=== PATIENT | male | born 1935 | race Caucasian/White ===

== ENCOUNTER 2018-12-15 10:43 | Emergency (ER) | payer MEDICARE, OTHER, SELFPAY ==
[2018-12-15 10:59] VITALS: BP 157/64; PULSE 78; RESP 16; TEMP 36.6; O2SAT 95; BMI 26.3
--- NOTE | 2018-12-15 11:40 | ED_ITS ---
HPI - Skin/Abscess/Foreign Bdy <YSABEL Koenig - Last Filed: 12/15/18 12:03> General Chief complaint: Skin/Abscess/Foreign Body Stated complaint: rash on right arm and back Time Seen by Provider: 12/15/18 11:15 Source: patient and family Mode of arrival: ambulatory Limitations: no limitations History of Present Illness HPI narrative: The patient is an 83-year-old male who presents with a chief complaint of a rash. He is a former smoker, who states he has vaccinated fully including shingles. He states that he has developed a rash on his arm and back. This occurred after sleeping in a hotel, using hotel shampoo and being exposed to hotel cleaning products. He denies any fevers nausea vomiting or diarrhea. He denies any crusting. He states he is up-to-date on vaccinations. He denies any pustules. He has not done anything to feel better. He has taken a shower since sleeping at the hotel. He states the rash is itchy but not painful. He denies any other exposures. Related Data Allergies Allergy/AdvReac Type Severity Reaction Status Date / Time No Known Drug Allergies Allergy Verified 12/15/18 10:59 Review of Systems <YSABEL Koenig - Last Filed: 12/15/18 12:03> Review of Systems GENERAL: Denies chills, fatigue, malaise, fever, sweats. HEENT: Denies sinus pain, ear pain, sore throat, difficulty swallowing, dizziness. RESPIRATORY: Denies dyspnea, cough, wheezing, hemoptysis, sputum. CARDIOVASCULAR: Denies chest pain, palpitations, orthopnea, edema, GASTROINTESTINAL: Denies nausea, vomiting, abdominal pain, diarrhea, constipation, melena. : Denies dysuria, frequency, incontinence, hematuria, urinary retention. MUSCULOSKELETAL: denies weakness, joint pain, or bony pain SKIN: See HPI NEUROLOGIC: Denies weakness, headache, numbness, change in speech, confusion, seizures, incoordination. PSYCHIATRIC: No concerning psychosocial issues. 12 point review of systems is negative except for those stated above PFSH <YSABEL Koenig - Last Filed: 12/15/18 12:03> Medical History (Updated 12/15/18 @ 12:01 by YSABEL Koenig) Family history non-contributory (Acute) Social History Smoking Status: Former smoker Social History Smoking Status: Former smoker Exam <YSABEL Koenig - Last Filed: 12/15/18 12:03> Narrative Exam Narrative: GENERAL: This is a well-nourished, well-developed patient, no acute distress HEAD: Atraumatic. Normocephalic. No temporal or scalp tenderness. EYES: Pupils equal round and reactive. Extraocular motions intact. No scleral icterus. No injection or drainage. ENT: Nose without bleeding, purulent drainage or septal hematoma. Throat without erythema, tonsillar hypertrophy or exudate. Uvula midline. Airway patent. NECK: Trachea midline. No JVD or lymphadenopathy. Supple, nontender, no meningeal signs. CARDIOVASCULAR: Regular rate and rhythm RESPIRATORY: Clear to auscultation. Breath sounds equal bilaterally. No wheezes, rales, or rhonchi. No coughing no increased respiratory effort. No accessory muscle use. GASTROINTESTINAL: Abdomen soft, non-tender, nondistended. No hepato- splenomegaly, or palpable masses. No guarding. EXTREMITIES: No clubbing, cyanosis, or edema. No joint tenderness, effusion, or edema noted. BACK: Nontender without deformity or crepitance. No flank tenderness. NEURO: AOx3. SKIN: Very faint macular rash noted over back, left arm, right arm and lashes on chest. No pustules. No vesicles. No crusting no exudate. Initial Vital Signs Initial Vital Signs: Vital Signs Temperature 97.8 F 12/15/18 10:59 Pulse Rate 78 12/15/18 10:59 Respiratory Rate 16 12/15/18 10:59 Blood Pressure 157/64 H 12/15/18 10:59 Pulse Oximetry 95 12/15/18 10:59 <Rupal Gleason MD - Last Filed: 12/15/18 20:36> Initial Vital Signs Initial Vital Signs: Vital Signs Temperature 97.8 F 12/15/18 10:59 Pulse Rate 78 12/15/18 10:59 Respiratory Rate 16 12/15/18 10:59 Blood Pressure 157/64 H 12/15/18 10:59 Pulse Oximetry 95 12/15/18 10:59 Course <YSABEL Koenig - Last Filed: 12/15/18 12:03> Vital Signs - 8 hr 12/15/18 10:59 Temperature 97.8 F Pulse Rate 78 Respiratory Rate 16 Blood Pressure 157/64 H Pulse Oximetry 95 <Rupal Gleason MD - Last Filed: 12/15/18 20:36> Vital Signs - 8 hr 12/15/18 10:59 Temperature 97.8 F Pulse Rate 78 Respiratory Rate 16 Blood Pressure 157/64 H Pulse Oximetry 95 MDM - Skin/Abscess/Foreign Bdy <YSABEL Koenig - Last Filed: 12/15/18 12:03> MDM Narrative Medical decision making narrative: The patient is an 83-year-old male who presents with a rash. He was recently exposed to chemicals at hotel. He has no systemic symptoms. He has no pain, but does complain of itching. I do believe he is having a contact reaction to the chemicals from the hotel. I discussed at length using Eucerin cream from a tablet to help hydrated skin, reducing exposures. Discussed that steroids can be used, but patient requested to use conservative measures at this point time. Discussed coming back to the emergency department for any acute concerns such as chest pain, shortness of breath, fever. Discussed at length follow up with PCP when he returns back home. Patient and daughter have no questions or concerns upon discharge. Discharge Plan Departure Patient Disposition: Home Clinical Impression: Contact dermatitis Qualifiers: Contact dermatitis type: irritant Contact dermatitis trigger: unspecified trigger Qualified Code(s): L24.9 - Irritant contact dermatitis, unspecified cause Discharge Date/Time: 12/15/18 11:51 Interventions: ED Discharge Assessment Last Done: 12/15/18 11:51 Instructions: DI for Contact Dermatitis Activity Restrictions/Additional Instructions: Your exam and history is consistent with a contact irritant resulting in a contact dermatitis I suggest avoiding caustic agents for your scan at this point in time. Please use a non additive shampoo, soap etc You can try using a tub based moisturizer like Eucerin or Aquaphor. Please monitor for fever, chest pain or shortness of breath. Please come back to the emergency department for any acute concerns. Please follow up with primary care provider.
== END 2018-12-15 11:51 | disposition home or self-care (01) ==
LOC: ED 11:48
PROVIDERS: Emergency Provider Nurse Practitioner Family
DX: L24.9 Irritant contact dermatitis, unspecified cause (principal)
CPT/HCPCS: 99282